=== PATIENT | female | born 1965 | race Caucasian/White ===

== ENCOUNTER → 2016-12-14 | Outpatient (CLI) | payer OTHER ==
[~2016-12-14] MED LIST: CEFA250C PO; FLUC150T PO; FRCT/ PO; RIVA1TAB4 PO
== END | disposition home or self-care (01) ==
LOC: C.LABSPEC 10:13
PROVIDERS: ATTEND Family Medicine
DX: N39.0 Urinary tract infection, site not specified (principal)

== ENCOUNTER → 2016-12-17 | Outpatient (CLI) | payer OTHER ==
--- NOTE | 2016-12-17 10:09 | DIAGNOSTIC IMAGING REPORT ---
PELVIS/BILATERAL HIP 2 VIEWS CLINICAL HISTORY: PT COMING FROM ULTRA RIGHT FLANK/ RLQ PAIN, pain COMPARISON STUDY: None FINDINGS: Mild elevation of the acetabular angles bilaterally. Mild bilateral hip dysplastic changes most likely present. No acute abnormality. No evidence for acetabular protrusion. Sacroiliac joints appear unremarkable. IMPRESSION: Mild dysplastic change of the hips bilaterally. No acute process. Electronically signed by: Keegan Barajas M.D. 12/17/2016 10:07 AM Dictated Date/Time: 12/17/2016 10:06 AM
--- NOTE | 2016-12-17 10:10 | DIAGNOSTIC IMAGING REPORT ---
LUMBAR SPINE 5 VIEWS HISTORY: Pain. Radiculopathy. PT COMING FROM ULTRA RIGHT FLANK/ RLQ PAIN, COMPARISON: None. FINDINGS: There is no fracture. No subluxation. Moderate to significant degenerative disc change L5-S1. A vacuum disc is present. All remaining discs are well-preserved. No evidence for compression deformity. IMPRESSION: Degenerative change most prominent at L5-S1 Electronically signed by: Keegan Barajas M.D. 12/17/2016 10:08 AM Dictated Date/Time: 12/17/2016 10:08 AM
--- NOTE | 2016-12-17 10:11 | DIAGNOSTIC IMAGING REPORT ---
ULTRASOUND OF THE PELVIS CLINICAL HISTORY: Right pelvic pain. COMPARISON STUDY: Pelvic CT dated 02/13/2015. TECHNIQUE: Real-time, grayscale, and color flow sonography of the pelvis is performed both transabdominally and endovaginally. Images are reviewed in the transverse and longitudinal planes. FINDINGS: Uterus: The uterus is normal in size and echotexture, measuring 9.8 x 4.8 x 5.8 cm. A 2.2 cm intramural fibroid is suggested in the fundus. Small complex appearing Nabothian cysts are incidentally noted in the cervix. Endometrium: The endometrium is normal in appearance, and the endometrial stripe is normal in thickness measuring up to 1.0 cm. A 2 mm cystic focus in the endometrium is incidentally noted. Ovaries: The ovaries are normal in size and morphology. The right ovary measures 3.3 x 1.0 x 2.4 cm and the left ovary measures 4.2 x 1.6 x 3.9 cm. Bilateral ovarian follicles are noted. Normal Doppler waveforms are shown within both ovaries. Pelvis: There is trace free fluid in the cul-de-sac. No concerning adnexal lesion is seen. IMPRESSION: 1. No acute sonographic abnormality is identified in the pelvis. 2. There is trace and likely physiologic free fluid in the cul-de-sac. 3. Suspect a fundal fibroid. Electronically signed by: Justice Luna M.D. 12/17/2016 10:10 AM Dictated Date/Time: 12/17/2016 10:08 AM
--- NOTE | 2016-12-17 10:20 | DIAGNOSTIC IMAGING REPORT ---
ABDOMINAL ULTRASOUND COMPLETE HISTORY: Pain RIGHT FLANK/ RLQ PAIN, HX R KIDNEY INFARCTION. COMPARISON: 02/09/2015 FINDINGS: Pancreas: The pancreas demonstrates a normal echotexture. Liver: Unremarkable. Gallbladder: No gallbladder wall thickening. No gallstones. CBD: 5 mm possible trace debris within the common bile duct Kidneys: No hydronephrosis. Spleen: Normal in size. Aorta: Normal in caliber. IVC: Patent. IMPRESSION: 1. Artifact versus a trace amount of debris within the common bile duct. 2. Study abdomen is otherwise negative Electronically signed by: Keegan Barajas M.D. 12/17/2016 10:19 AM Dictated Date/Time: 12/17/2016 10:09 AM
== END | disposition home or self-care (01) ==
LOC: C.ULTR 07:55
PROVIDERS: ATTEND Family Medicine
DX: R10.31 Right lower quadrant pain (principal); Z87.448 Personal history of other diseases of urinary system; Z86.19 Personal history of other infectious and parasitic diseases; R93.7 Abnormal findings on diagnostic imaging of other parts of musculoskeletal system; R93.8 Abnormal findings on diagnostic imaging of other specified body structures

== ENCOUNTER → 2017-10-15 | Outpatient (CLI) | payer OTHER ==
--- NOTE | 2017-10-15 14:37 | MAMMOGRAPHY REPORT ---
BILATERAL DIGITAL SCREENING MAMMOGRAM TOMOSYNTHESIS WITH CAD: 10/15/2017 CLINICAL HISTORY: Routine screening. TECHNIQUE: Breast tomosynthesis in addition to standard 2D mammography was performed. Current study was also evaluated with a Computer Aided Detection (CAD) system. COMPARISON: Comparison is made to exams dated: 10/09/2016 mammogram, 10/08/2015 mammogram, 4 mammogram, 08/29/2013 mammogram, 08/22/2012 mammogram, and 08/18/2011 mammogram - [facility]. BREAST COMPOSITION: The tissue of both breasts is heterogeneously dense, which may obscure small mas ses. FINDINGS: No suspicious masses, calcifications, or areas of architectural distortion are noted in ei ther breast. There has been no significant interval change compared to prior exams. Bilateral benign -appearing calcifications are not significantly changed. Regional asymmetry in the left superior yue ast is stable dating back to at least the 2007 exam. Other bilateral asymmetries are stable. IMPRESSION: ACR BI-RADS CATEGORY 2: BENIGN There is no mammographic evidence of malignancy. A 1 year screening mammogram is recommended. The pa tient will receive written notification of the results. Approximately 10% of breast cancers are not detected with mammography. A negative mammographic report should not delay biopsy if a clinically suggestive mass is present. Kayla Fu M.D. ah/:10/15/2017 10:15:16 Finished Cigar Maker: Megan MOSES)([place]), [facility] letter sent: Normal 1/2 BI-RADS Code: ACR BI-RADS Category 2: Benign
== END | disposition home or self-care (01) ==
LOC: C.MAMM 08:14
PROVIDERS: ATTEND Family Medicine
DX: Z12.31 Encounter for screening mammogram for malignant neoplasm of breast (principal)

== ENCOUNTER → 2017-12-15 | Outpatient (CLI) | payer OTHER ==
--- NOTE | 2017-12-15 11:37 | DIAGNOSTIC IMAGING REPORT ---
VENOUS DOPPLER LWR EXT BILA HISTORY: Pain. Edema. R/O DVT BL COMPARISON STUDY: None. FINDINGS: There is normal compressibility, flow, and augmentation within the bilateral lower extremity deep venous systems. IMPRESSION: No DVT within the right or left lower extremity. The above report was generated using voice recognition software. It may contain grammatical, syntax or spelling errors. Electronically signed by: Keegan Barajas M.D. 12/15/2017 11:36 AM Dictated Date/Time: 12/15/2017 11:35 AM
[2017-12-15 12:13] LABS: HEMATOCRIT 39.4 % (37-47); HEMOGLOBIN 13.4 g/dL (12.0-16.0); MEAN CELL VOLUME 97.5 fL (80-100); MEAN CORPUSCULAR HEMOGLOBIN 33.2 pg (25-34); PLATELET COUNT 305 K/uL (130-400); RED CELL DISTRIBUTION WIDTH CV 12.6 % (11.5-14.5); RED CELL DISTRIBUTION WIDTH SD 44.9 fL (36.4-46.3); WHITE BLOOD COUNT 5.87 K/uL (4.8-10.8)
[2017-12-15 12:23] LABS: ALBUMIN 3.8 gm/dl (3.4-5.0); ALT/SGPT 14 U/L (12-78); BLOOD UREA NITROGEN 10 mg/dl (7-18); CALCIUM 8.9 mg/dl (8.5-10.1); CARBON DIOXIDE 27 mmol/L (21-32); CHOLESTEROL 187 mg/dl (0-200); CREATININE 0.89 mg/dl (0.60-1.20); GLUCOSE 94 mg/dl (70-99); POTASSIUM 3.5 mmol/L (3.5-5.1); SODIUM 137 mmol/L (136-145)
[2017-12-15 12:26] LABS: HEMOGLOBIN A1C 5.7 % (4.5-5.6)
[2017-12-15 12:32] LABS: ALKALINE PHOSPHATASE 46 U/L (45-117); AST/SGOT 18 U/L (15-37); LDL CHOLESTEROL CALCULATED 98 mg/dl; TOTAL PROTEIN 7.2 gm/dl (6.4-8.2); TRANSFERRIN 294 mg/dl (200-360)
[2017-12-16 13:23] LABS: CA 125 **TC 29256X 30 U/ML (<35)
== END | disposition home or self-care (01) ==
LOC: C.ULTR 09:34
PROVIDERS: ATTEND Family Medicine
DX: D50.9 Iron deficiency anemia, unspecified (principal); Z86.718 Personal history of other venous thrombosis and embolism; M79.605 Pain in left leg; M79.604 Pain in right leg; R60.0 Localized edema

== ENCOUNTER 2020-08-09 10:16 | Observation (INO) ==
--- NOTE | 2020-07-09 13:55 | PAT Medication Instructions ---
Medication Instructions Date of Service July 09, 2020 Home Medications Medication Instructions Recorded Wheeled Walker #1 ea 06/28/20 Wheeled Walker #1 ea 06/28/20 aspirin [Aspir-81] 81 mg PO QPM rizatriptan [Maxalt] 10 mg PO UD PRN Take morning of surgery With a small sip of water, OTHERWISE NOTHING TO EAT OR DRINK AFTER MIDNIGHT: rizatriptan [Maxalt] 10 mg PO UD PRN (if needed) Take evening before surgery aspirin [Aspir-81] 81 mg PO QPM rizatriptan [Maxalt] 10 mg PO UD PRN Other Notes If you have any questions please call us at [phone] or [phone] or [phone] or [phone]
--- NOTE | 2020-07-10 09:38 | Anesthesiology Consultation ---
Date of Service July 10, 2020 Assessment & Plan (1) Encounter for pre-operative examination: COVID Status: As of 07/10 assessment, patient denies travel to endemic area, known exposure/sick contacts, or symptoms of COVID19. Patient instructed that they and their household members must follow strict social distancing guidelines, wear a mask in public and avoid travel for 14 days prior to surgery. Preoperative COVID19 testing to be completed prior to surgery per surgeon's a rrangements. Patient made aware to self-isolate as much as possible between COVID testing and surgery. HCG AM DOS H/O PONV. Chart Review Chart Review: Acceptable Risk for Surgery and Patient seen in Pre Admission Testing Teaching & Discussion Instructed NPO after midnight before surgery, except medications with 15 cc of water. Medication instructions provided according to the PAT guidelines. History Surgery Operation Date: 08/09/20 13:15 Proposed Procedures p Left Total Knee Arthroplasty - Jt Hernandez MD Height/Weight Height: 5 ft 2 in Weight: 65.8 kg Allergies Allergy/AdvReac Type Severity Reaction Status Date / Time latex Allergy Unknown RASH-WITH Verified 07/04/20 09:10 GLOVES Iodinated Contrast Media AdvReac Unknown FAINT Verified 07/04/20 09:10 NAUSEA Medications Home Medications Medication Instructions Recorded Confirmed Last Taken Wheeled Walker #1 ea 06/28/20 Unknown Wheeled Walker #1 ea 06/28/20 Unknown aspirin [Aspir-81] 81 mg PO QPM 07/04/20 07/04/20 Unknown rizatriptan [Maxalt] 10 mg PO UD PRN 07/04/20 07/04/20 Unknown Past Medical History Medical History (Updated 07/10/20 @ 09:47 by Devonte Balderas) DVT (deep venous thrombosis) RLE 2014-ATTRIBUTED TO [facility]-STOPPED TAKING-WAS ON XARELTO SHORT TIME-NO ISSUES SINCE Migraine HX Osteoarthritis Ovarian cyst Exercise / Class Metabolic Activity II 4-5 Yardwork/Stairs/Walk up hill Past Family History Family History Other No significant family history Past Surgical History Surgical History (Updated 07/10/20 @ 09:47 by Devonte Balderas) History of arthroscopy KNEE History of dermoid cyst excision upper lip History of dilatation and curettage History of tooth extraction LOCAL ANESTHESIA Nausea and vomiting after administration of anesthetic agent Past Anesthesia History No Hx of Anesthesia Complications and No Family Hx of Anesthesia Complications History of PONV No Hx of Motion Sickness and History of PONV Social History Smoking Status: Never smoker Do You Dip or Chew Tobacco: No Hx Alcohol Use: Yes Alcohol type: wine alcohol intake frequency: a few times a month Hx Substance Use: No Review of Systems Pt denies any recent chest pain, shortness of breath, palpitations, cough, fever, URI, or uncontrolled acid reflux. +itchy watery eyes, sneezing from seasonal allergies Physical Exam Vital Signs BP: 145/90 P: 84bpm SPO2: 100% RA T: 98.3 F R: 12 ENMT Mouth: + dental restorations (2 caps on molars) and + chipped teeth (very small chip in upper L incisore); no loose teeth Thyromental Distance: > or= 3.5 Finger Breadths Mallampati Class: I Neck normal visual inspection; neck extension not limited Respiratory normal respiratory effort Auscultation: lungs clear to auscultation bilaterally Cardiovascular Rate/Rhythm: regular rate and regular rhythm Heart Sounds: no murmur Extremities: no edema Testing Laboratory Results 07/10/20 09:50 07/10/20 09:50 PT 10.2 Seconds (9.0-12.0) 07/10/20 09:50 INR 1.0 (0.9-1.1) 07/10/20 09:50 APTT 25.2 Seconds (21.0-31.0) 07/10/20 09:50 Blood Type A Positive 07/10/20 09:50 Antibody Screen NEGATIVE 07/10/20 09:50 Electrocardiogram Date: 07/10/20 Findings: + NSR @ (79bpm) Chest X-Ray Date: 07/10/20 Findings: + NAD
--- NOTE | 2020-07-10 10:25 | XRay Report ---
XR chest Pre-admission PA/Lat CLINICAL HISTORY: Preoperative chest COMPARISON STUDY: No previous studies for comparison. FINDINGS: The cardiac and mediastinal contours are normal. There is no evidence of focal pulmonary co nsolidation. There is no evidence of failure. No pleural effusions are visualized.[ IMPRESSION: No active disease in the chest. ACT 112: Negative or not required by law. Electronically signed by: Bj Cummins M.D. 07/10/2020 10:23 AM
[2020-07-10 11:27] LABS: Basophils # (auto) 0.03 K/uL (0-0.2); Basophils % (auto) 0.6 %; Eosinophils # (auto) 0.03 K/uL (0-0.5); Eosinophils % (auto) 0.6 %; Hematocrit (blood only) 41.7 % (37-47); Hemoglobin 13.8 g/dL (12.0-16.0); Lymphocytes # (auto) 1.43 K/uL (1.2-3.4); Lymphocytes % (auto) 29.7 %; Mean Corpuscular Hemoglobin 32.1 pg (25-34); Mean Corpuscular Hgb Conc 33.1 g/dL (32-36); Mean Platelet Volume 10.5 fL (7.4-10.4); Monocytes # (auto) 0.35 K/uL (0.11-0.59); Monocytes % (auto) 7.3 %; Neutrophils # (auto) 2.98 K/uL (1.4-6.5); Neutrophils % (auto) 61.8 %; Platelet Count 363 K/uL (130-400); RDW Coefficient of Variation 12.5 % (11.5-14.5); RDW Standard Deviation 44.2 fL (36.4-46.3); White Blood Count 4.82 K/uL (4.8-10.8)
[2020-07-10 11:44] LABS: Partial Thromboplastin Ratio 0.9; Partial Thromboplastin Time 25.2 Seconds (21.0-31.0); Prothrombin Time 10.2 Seconds (9.0-12.0)
[2020-07-10 13:03] LABS: BUN Creatinine Ratio 14.5 (10-20); Calcium 9.9 mg/dl (8.5-10.1); Creatinine Clr Calc Pharmacy 65.8 ml/min; Est GFR (African American) 86.9; Potassium 3.9 mmol/L (3.5-5.1)
--- NOTE | 2020-07-11 05:52 | Electrocardiogram Report ---
Test Reason : Blood Pressure : / mmHG Vent. Rate : 079 BPM Atrial Rate : 079 BPM P-R Int : 124 ms QRS Dur : 072 ms QT Int : 378 ms P-R-T Axes : 067 068 053 degrees QTc Int : 433 ms Normal sinus rhythm Normal ECG When compared with ECG of 13-JAN-2019 20:25, No significant change was found Confirmed by Otoniel Johns ([id number]) on 07/11/2020 5:51:49 AM Referred By: Jt Hernandez Confirmed By:Otoniel Johns
--- NOTE | 2020-08-03 13:36 | History and Physical Report ---
DATE OF ADMISSION: 08/09/2020 CHIEF COMPLAINT: Bilateral knee pain and discomfort, left side greater than right. HISTORY OF PRESENT ILLNESS: The patient is a 54-year-old female who presents for followup and treatment of her knees. I have been treating for the past 1+ years for her knee DJD. It has gradually gotten worse over time. She does have a history of left knee arthroscopy done in the in [place]. Since then, she has been through extensive conservative treatment including bracing, therapy, anti-inflammatories, and topical medicines and injections. This has become less successful over time. Left side bothering more than the right. She has global pain. It is increased with weightbearing. The more she is up and on it, the more it hurts. She would like to have her knee fixed. PAST MEDICAL HISTORY: Significant for, 1. History of DVT, thought to be related to contraceptive use. Negative hematological workup. 2. Degenerative arthritis. PAST SURGICAL HISTORY: Includes, 1. Left knee arthroscopy in the . 2. Mcbee teeth extraction. ALLERGIES: HAY FEVER AND TYLENOL. CURRENT MEDICATIONS: Include Singulair and aspirin. SOCIAL HISTORY: A 54-year-old female. She is . Rare alcohol intake. Lives in [place]. Does not smoke. FAMILY HISTORY: Noncontributory. REVIEW OF SYSTEMS: Negative for diabetes, neurologic problem, vascular problems or bleeding disorders. No chest pain or shortness of breath. No history of DVT or PE. No known bleeding problems. PHYSICAL EXAMINATION GENERAL: Shows a pleasant, healthy, thin female. Looks to be in good health. HEENT: Benign. NECK: Supple, no lymphadenopathy. LUNGS: Clear to auscultation. HEART: Has a regular rate and rhythm. ABDOMEN: Soft, nontender, nondistended. EXTREMITIES: Grossly neurovascularly intact except as follows: Examination of the left knee reveals the patient walks with a valgus alignment to her knee, which is increased with weightbearing. She has a small to moderate size knee effusion. Range of motion 5-120. No instability. No pain with hip motion. Examination of the right knee reveals slight valgus alignment. Small knee effusion. Range of motion 0-125. No instability. X-RAYS: X-rays of the left knee are reviewed. It shows advanced left knee lateral compartment DJD. She has complete loss of her lateral joint space. It is worse on the 45-degree flexion films. She has got osteophytes laterally. ASSESSMENT: A 54-year-old female with advanced bilateral knee degenerative joint disease, left side more symptomatic than right. She has failed conservative care including a knee arthroscopy many years ago. She would like to have her left knee replaced. PLAN: We discussed treatment. We are going to proceed with left knee replacement. The risks and benefits of this procedure were explained to the patient and include but not limited to DVT, PE, , infection, neurological injury, vascular injury, bleeding problem, pain, limited range of motion, stiffness, failure to relieve her symptoms, incomplete relief of symptoms, need for further surgery in the future, fracture, leg length inequality, nerve palsy, etc. The patient understands and desires to proceed. Informed consent was obtained. Due to her history of this DVT in the past, we will likely use Xarelto for a month postoperatively for DVT prophylaxis along with TEDs and SCDs. She is going to plan and have [facility] assist in her care. I will see her back 2 weeks postop.
[~2020-08-09 10:16] MED LIST changes: +ACETAMINOPHEN 500 MG TAB PO SCH; +BUPIVACAINE 0.5 % 5 MG/1 ML PF 10ML VIAL ONE; +BUPIVACAINE LIPOSOME/PF 266 MG, BUPIVACAINE/EPINEPHRINE 50 ML, SODIUM CHLORIDE 0.9% 30 ... INFIL SCH; +BUPIVACAINE/EPINEPHRINE 0.25% 1:200,000 30 ML VIAL ONE; -CEFA250C PO; +DEXAMETHASONE SOD INJ 4 MG/ML VIAL ONE; +FAMOTIDINE 20 MG TAB PO SCH; -FLUC150T PO; -FRCT/ PO; +GABAPENTIN 900 MG DOSE PO SCH; +LR 500ML BOLUS, THEN 15ML/HR IV SCH; +LR 60ML/HR IV SCH; +METOCLOPRAMIDE HCL 10 MG TABLET PO SCH; -RIVA1TAB4 PO; +TRANEXAMIC ACID 1,000 MG **IV Intra-op IV SCH; +ceFAZolin 2000MG 2,000 MG/15 ML SYR IV SCH
--- NOTE | 2020-08-09 11:26 | History & Physical Bridge Note ---
Date of Service August 09, 2020 History & Physical Bridge Note I have examined the patient, reviewed the History & Physical and in the interval since the performance of the History & Physical I have noted the following changes of clinical significance: no changes noted
[2020-08-09] MEDS ORDERED: DEXAMETHASONE SOD INJ 4 MG/ML VIAL ONE (12:21)
[2020-08-09] MEDS ORDERED: PROPOFOL IV EMULSION 10 MG/ML 20 ML VIAL IV ONE ×2 (12:21→14:58)
[2020-08-09] MEDS ORDERED: LIDOCAINE HCL 2% 2 ML VIAL/AMP(20MG/ML) INFIL ONE (12:21)
[2020-08-09] MEDS ORDERED: ONDANSETRON INJ 2 MG/ML 2 ML VIAL ONE (12:21)
[2020-08-09] MEDS ORDERED: MIDAZOLAM HCL 1 MG/ML 2ML VIAL ONE (12:22)
[2020-08-09] MEDS ORDERED: fentaNYL citrate 100 MCG/2 ML VIAL ONE (12:22)
[2020-08-09] MEDS ORDERED: ePHEDrine sulfate 50 MG/ML AMP IV PRN (12:53)
[2020-08-09] MEDS ORDERED: ATROPINE SULFATE 0.1 MG/ML 10ML SYR IV PRN (12:53)
[2020-08-09] MEDS ORDERED: fentaNYL citrate 100 MCG/2 ML VIAL IV PRN (12:53)
[2020-08-09] MEDS ORDERED: ONDANSETRON INJ 2 MG/ML 2 ML VIAL IV PRN ×2 (12:53→16:15)
[2020-08-09] MEDS ORDERED: ePHEDrine sulfate 50 MG/ML AMP ONE (12:57)
[2020-08-09] MEDS ORDERED: BUPIVACAINE LIPOSOME 1.3% 266 MG/20 ML VIAL ONE (13:35)
[2020-08-09] MEDS ORDERED: SODIUM CHLORIDE 0.9% PF 50 ML VIAL ONE (13:35)
[2020-08-09] MEDS ORDERED: BACITRACIN INJ 50,000 UNIT VIAL ONE (13:35)
[2020-08-09] MEDS ORDERED: BUPIVACAINE/EPINEPHRINE 0.25% 1:200,000 30 ML VIAL ONE (13:37)
[2020-08-09] MEDS ORDERED: PHENYLEPHRINE 100MCG/ML 5ML SYR ONE (14:23)
--- NOTE | 2020-08-09 15:37 | Post Operative Brief Note ---
PG Immediate Post Op with CF Date of Surgery August 09, 2020 Pre & Post Diagnosis Operation Date: 08/09/20 12:30 Pre-Op Diagnosis: Left Knee Degenerative Joint Disease Post-Op Diagnosis: Left Knee Degenerative Joint Disease I identified the patient and participated in the time-out.: Yes Procedure Operation Date: 08/09/20 12:30 Actual Procedures p Left Total Knee Replacement(Left) - Jt Hernandez MD Surgeon Jt Hernandez MD Carpenter Repairer Shaniqua, PAC Estimated Blood Loss 50 Findings Consistent with Post-Op Diagnosis Fluids 1600 cc Specimens Specimen Description: Permanent Solution: A.) Left Knee Bone and Tissue Drains Fletcher Catheter (16F latex free 10ml balloon; inserted by Maksim Mcgovern PA-C without difficulty) Anesthesia Type Spinal MAC Complications none Disposition Accompanied Patient To Recovery: Yes Disposition: Recovery Room
--- NOTE | 2020-08-09 15:56 | XRay Report ---
TWO VIEWS LEFT KNEE CLINICAL HISTORY: Postoperative examination. FINDINGS: AP and crosstable lateral portable views of the left knee are obtained. A left knee arthrop lasty is in near anatomic alignment. There has been undersurface remodeling of the patella. No acute fracture is seen. There are expected postoperative changes around the knee including skin clips, soft tissue edema, and subcutaneous gas. IMPRESSION: Expected postoperative changes status post left knee arthroplasty. No acute fracture is s een. ACT 112: Negative or not required by law. Electronically signed by: Justice Luna M.D. 08/09/2020 3:55 PM
--- NOTE | 2020-08-09 16:12 | Operative Report ---
Post Operative Report Pre & Post Diagnosis Operation Date: 08/09/20 12:30 Pre-Op Diagnosis: Left Knee Degenerative Joint Disease Post-Op Diagnosis: Left Knee Degenerative Joint Disease I identified the patient and participated in the time-out.: Yes Procedure Operation Date: 08/09/20 12:30 Actual Procedures p Left Total Knee Replacement(Left) - Jt Hernandez MD Surgeon Jt Hernandez MD Collar Feller Shaniqua, PAC Estimated Blood Loss 50 Findings Consistent with Post-Op Diagnosis Operative findings revealed advanced left knee DJD with extensive grade 4 changes of the lateral compartment as well as the patellofemoral compartment. She had a fixed valgus deformity to her knee. Moderate sized knee joint effusion. Fluids 1600 cc. Specimens Left knee sent for pathology. Drains None. Anesthesia Type Spinal MAC Complications none Disposition Accompanied Patient To Recovery: Yes Disposition: Recovery Room Indications Patient is a 54-year-old female has had a several year history of increasing bilateral knee pain discomfort left side greater than the right. We have been treating conservatively over the years which became less successful over time. She does have a history of knee arthroscopy in the past. X-rays show advanced lateral compartment DJD. She elected proceed with surgical treatment. Description of Procedure Operative implants consist of: 1. Biomet Vanguard size 62.5 left posterior stabilized femoral component. 2. Biomet size 67 tibial tray. 3. 12 mm posterior stabilized polyethylene insert. 4. 28 x 8 all polypatella. Patient was taken to the operating room identified and placed on the operating table supine position but all contact areas were properly padded. IV antibiotics arrived by anesthesia team. A spinal anesthetic and abductor canal block had been provided in the holding area. Fletcher catheter was placed in sterile fashion. Left thigh tip was then placed in the left lower extremities and prepped draped in usual sterile fashion. The left leg was elevated exsanguinated with use of an Esmarch and turns placed at 3 mmHg. An anterior approach left knee was then performed to longitudinal incision centered over the patella. Sharp dissection was got through subcutaneous tissue down to level the extensor mechanism. A medial parapatellar arthrotomy incision was made. Some subperiosteal dissection was carried out medially. The fat pad was resected from each patella tendon. Lateral patellofemoral ligament was released. The patella was subluxated laterally and the knee was flexed. The osteophytes were taken off the distal femur. The ACL and PCL were then released from distal femur the tibia subluxate anteriorly. External tibial alignment jig was then placed in the interface the tibia and adjusted 12 mm medially. Proximal tibial cut was made to move about 3 to 4 mm o f bone from the medial side. The tibia sized to a size 67. Attention drawn the femur. The distal femur was entered with a sharp drill. The intramedullary canal was suction. A left 5 degree valgus cutting guide was placed. This femoral cutting block was pinned in place. Distal femoral cut was made to take an additional 3 mm bone off distal femur. The knee was then brought out in extension. I did release some of the IT band in the posterior lateral capsule in order to equalize the extension gap. Great care was taken to protect the peroneal nerve at all times. The knee was then flexed. The femur was sized to a size 62.5. The AP cutting block was pinned parallel to the epicondylar axis which was 6 degrees of external rotation. The anterior cut, anterior chamfer, posterior cut, posterior chamfer cuts were made. Box cutting guide was placed in a just slight lateral and the box cut was made. The knee was flexed. The remnants of the medial lateral menisci were excised. The osteophytes were taken off the posterior aspect of femur. I did release the popliteus in order to equalize the flexion gap. The trial femoral component was then placed. The tibial tray was pinned in maximum external rotation and the drill and stem punch were used to create defect in proximal tip for the tibial tray. The knee was then trialed and the 12 mm insert fit most appropriately. Attention drawn the patella. The patella was cleaned of all soft tissues. Patella thickness measured 20 mm in thickness was cut down 13. Was sized to a size 28 patella. Locals were drilled for the 28 patella. Lateral osteophyte is moved. Patella button was placed. The knee was taken through range of motion and the patella tracked nicely with no thumbs test. Attention drawn to place the permanent components. All trial components were removed. A bone plug was placed in the distal femur limit blood loss put a double batch Pal[place]os G cement was mixed. A Biomcisimple Vanguard size 62.5 left posterior stabilized femoral component, a size 67 tibial tray, a 12 mm posterior box polyethylene insert, and a 28 x 8 all polypatella were then cemented in place. He was brought out into full extension total c ement hardened. Final cement check was then performed. The pericapsular tissues were injected with total 100 cc of combination of 20 cc of Exparel, 30 cc normal saline, 50 cc of quarter percent Marcaine with epinephrine. Patient did receive 1 g tranexamic acid per the tourniquet was then let down for final turn time 58 minutes. Hemostasis assured use electrocautery. The extensor mechanism then closed with combination 1 PDS suture #1 Vicryl suture in [id number] fashion. Extensor mechanism checked found to be intact the subcutaneous tissue then closed 2 Dexon suture in buried nerve fascia skin was closed skin mariluz. Leg was then cleaned dried a sterile dressing. Xeroform, 4 x 4's, sterile cast padding, Jacob bandage were applied. Patient then transferred to the recovery in stable condition. The patient tolerated procedure well and there were no complications. Maksim Mcgovern, my physician assistant professor of radiology, was present for the entire procedure. His assistance was essential and required for appropriate patient positioning, prepping and draping, surgical exposure, performing the technical details of the operation, placement the implants, closure of the wound, and placement of the sterile bandage. I attest to the content of the Intraoperative Record and any orders documented therein. Any exceptions are noted below.
[2020-08-09] MEDS ORDERED: ALUMINUM/MAGNESIUM SUSP 30 ML UDC PO PRN (16:15)
[2020-08-09] MEDS ORDERED: METOCLOPRAMIDE HCL INJ 5 MG/ML 2 ML VIAL IV PRN (16:15)
[2020-08-09] MEDS ORDERED: RIZATRIPTAN BENZOATE 10 MG TAB PO PRN (16:15)
[2020-08-09] MEDS ORDERED: diphenhydrAMINE Capsule 25 MG CAP PO PRN (16:15)
[2020-08-09] MEDS ORDERED: NALOXONE HCL 0.4 MG/1 ML VIAL/CARP IV PRN (16:15)
[2020-08-09] MEDS ORDERED: MAGNESIUM HYDROXIDE SUSP 30 ML UDC PO PRN (16:15)
[2020-08-09] MEDS ORDERED: HYDROmorphone INJ 0.5 MG/0.5 ML SYR IV PRN (16:15)
[2020-08-09] MEDS ORDERED: bisacodyL 10 MG SUPP PR PRN (16:15)
--- NOTE | 2020-08-09 16:25 | Anesthesiology Progress Note ---
Date of Service August 09, 2020 Anesthesia Post Procedure Vital Signs Vital Signs: Temp Pulse Pulse Pulse Resp BP BP 08/09/20 16:10 36.3 C L 96 H 16 99/62 L 08/09/20 15:55 36.5 C 92 H 16 102/59 L 08/09/20 15:45 101 H 16 104/53 L 08/09/20 15:37 36.6 C 101 H 16 110/56 L 08/09/20 11:24 37.2 C 99 H 20 126/88 Pulse Ox 08/09/20 16:10 97 08/09/20 15:55 96 08/09/20 15:45 98 08/09/20 15:37 98 08/09/20 11:24 99 Pain Intensity Right Head: Pain Intensity: 2 Transfer of Care Handoff Completed per policy Notes Mental Status: alert / awake / arousable Patient Amnestic to Procedure: Yes Nausea / Vomiting: adequately controlled Pain: adequately controlled Airway Patency, RR, SpO2: stable & adequate BP & HR: stable & adequate Hydration State: stable & adequate Neuraxial Anesthesia: was administered and sensory block is resolving Anesthetic Complications: no major complications apparent and Pt Satisfied with anesthetic care
[2020-08-09] MEDS ORDERED: SODIUM CHLORIDE 0.9% 1000ML 1,000 ML IV SCH (16:45)
[2020-08-09] MEDS: Scopolamine CHECK PATCH PLACEMENT SCH (17:09)
[2020-08-09] MEDS: ASCORBIC ACID 500 MG TAB PO SCH (18:25)
[2020-08-09] MEDS: FERROUS GLUCONATE 324 MG TAB PO SCH (18:26)
[2020-08-09] MEDS: KETOROLAC TROMETHAMINE 15 MG/ML VIAL IV SCH ×2 (18:26→22:36)
[2020-08-09] MEDS: ceFAZolin 1000MG 1,000 MG/7.5 ML SYR IV SCH (21:20)
[2020-08-09] MEDS: ACETAMINOPHEN 500 MG TAB PO SCH (21:21)
[2020-08-09] MEDS: SENNA 8.6 MG TAB PO SCH (21:22)
[2020-08-09] MEDS: ASPIRIN 81 MG ECTAB PO SCH (21:22)
[2020-08-09] MEDS: DOCUSATE SODIUM 100 MG CAP PO SCH (21:22)
[2020-08-09] MEDS: TAPENTADOL HCL ER 50 MG TABCR PO SCH (21:28)
[2020-08-10] MEDS: Scopolamine CHECK PATCH PLACEMENT SCH ×4 (00:09→23:48)
[2020-08-10] MEDS: ACETAMINOPHEN 500 MG TAB PO SCH ×3 (05:41→22:02)
[2020-08-10] MEDS: ceFAZolin 1000MG 1,000 MG/7.5 ML SYR IV SCH (05:41)
[2020-08-10] MEDS: KETOROLAC TROMETHAMINE 15 MG/ML VIAL IV SCH ×2 (05:42→11:12)
[2020-08-10 06:20] LABS: Hematocrit (blood only) 36.7 % (37-47); Hemoglobin 12.4 g/dL (12.0-16.0); Mean Corpuscular Hemoglobin 32.5 pg (25-34); Mean Corpuscular Hgb Conc 33.8 g/dL (32-36); Mean Corpuscular Volume 96.3 fL (80-100); Platelet Count 318 K/uL (130-400); RDW Coefficient of Variation 12.2 % (11.5-14.5); RDW Standard Deviation 42.8 fL (36.4-46.3); Red Blood Count 3.81 M/uL (4.2-5.4); White Blood Count 16.17 K/uL (4.8-10.8)
[2020-08-10 06:49] LABS: BUN Creatinine Ratio 10.8 (10-20); Calcium 9.4 mg/dl (8.5-10.1); Creatinine Clr Calc Pharmacy 58.1 ml/min; Est GFR (African American) 76.3; Est GFR (Non-African American) 65.9; Potassium 3.7 mmol/L (3.5-5.1)
[2020-08-10] MEDS: MULTIVITAMIN TAB PO SCH (08:20)
[2020-08-10] MEDS: DOCUSATE SODIUM 100 MG CAP PO SCH ×2 (08:20→20:05)
[2020-08-10] MEDS: ASCORBIC ACID 500 MG TAB PO SCH ×2 (08:20→18:00)
[2020-08-10] MEDS: FERROUS GLUCONATE 324 MG TAB PO SCH ×2 (08:20→18:01)
[2020-08-10] MEDS: TAPENTADOL HCL ER 50 MG TABCR PO SCH ×2 (08:21→20:05)
--- NOTE | 2020-08-10 09:34 | Progress Notes ---
DATE: 08/10/2020 SUBJECTIVE: A 54-year-old female postop day 1 from left knee replacement. She is doing quite well. Had a good night. Pain is controlled. No chest pain or shortness of breath. Not feeling dizzy or lightheaded. OBJECTIVE: VITAL SIGNS: Temperature 36.4. Vital signs stable. GENERAL: Shows a pleasant, middle-aged female. She is lying in bed, looks quite comfortable this morning. LUNGS: Clear to auscultation. HEART: Regular rate and rhythm. ABDOMEN: Soft, nontender, nondistended. EXTREMITIES: Grossly neurovascularly intact except as follows. Examination of the left leg reveals the dressing to be clean, dry and intact. Leg is well aligned. She can dorsiflex and plantarflex her foot appropriately. She is neurologically intact. LABORATORY DATA: Hemoglobin 12.4. Hematocrit 36.7. White cell count 16.17. Electrolytes are stable. ASSESSMENT: A 54-year-old female postop day 1 from left knee replacement, doing well. Pain is controlled. She is neurologically intact. White cell count is elevated, likely related to stress. PLAN: 1. DVT prophylaxis including thigh-high TEDs, SCDs, and Xarelto for 1 month. 2. PT/OT. Weight bear as tolerated. Left total knee protocol. 3. Pain control, doing well with current pain regimen. 4. Disposition: Plan to discharge to home with some home health once adequately recovered and medically stable and pain controlled.
[2020-08-10] MEDS: oxyCODONE HCL IR 5 MG TAB (IMMEDIATE RELEASE) PO PRN (15:41)
[2020-08-10] MEDS: RIVAROXABAN 10 MG TABLET PO SCH (15:43)
[2020-08-10] MEDS: SENNA 8.6 MG TAB PO SCH (20:05)
[2020-08-10] MEDS: ASPIRIN 81 MG ECTAB PO SCH (20:05)
[2020-08-11] MEDS: oxyCODONE HCL IR 5 MG TAB (IMMEDIATE RELEASE) PO PRN ×2 (02:05→09:39)
[2020-08-11] MEDS: ACETAMINOPHEN 500 MG TAB PO SCH (05:34)
[2020-08-11] MEDS: MULTIVITAMIN TAB PO SCH (08:40)
[2020-08-11] MEDS: ASCORBIC ACID 500 MG TAB PO SCH (08:40)
[2020-08-11] MEDS: TAPENTADOL HCL ER 50 MG TABCR PO SCH (08:40)
[2020-08-11] MEDS: DOCUSATE SODIUM 100 MG CAP PO SCH (08:40)
[2020-08-11] MEDS: FERROUS GLUCONATE 324 MG TAB PO SCH (08:40)
[2020-08-11] MEDS: RIVAROXABAN 10 MG TABLET PO SCH (08:40)
[2020-08-11] MEDS: Scopolamine CHECK PATCH PLACEMENT SCH (08:41)
--- NOTE | 2020-08-11 08:56 | Progress Notes ---
DATE: 08/11/2020 SUBJECTIVE: A 54-year-old female postop day 2 from a left knee replacement. She is doing pretty well. Pain has been reasonably well controlled. No chest pain or shortness of breath. Not feeling dizzy or lightheaded. OBJECTIVE: VITAL SIGNS: Temperature 36.9. Vital signs stable. GENERAL: Shows a pleasant, middle-aged female. She was walking around her room this morning with a walker and doing pretty well. EXTREMITIES: Examination of the left leg reveals it to be well aligned. Dressing is clean, dry and intact. Calf is soft and supple. She is neurologically intact. ASSESSMENT: A 54-year-old female postop day 2 from left knee replacement, doing well. Pain has been reasonably well controlled. She is neurologically intact. PLAN: 1. DVT prophylaxis including thigh-high TEDs, SCDs, and Xarelto for 1 month. 2. PT/OT. Weight bear as tolerated. Left total knee protocol. 3. Pain control, doing okay with current pain regimen. 4. Disposition: Plan to discharge to home with some home health later today.
--- NOTE | 2020-08-13 06:34 | Discharge Summary ---
Date of Service August 13, 2020 Admission HPI Per Admitting Provider Documented in the H & P Admission Exam (Per Admitting) Constitutional Documented in the h & P Discharge Data Consultations 08/09/20 16:15 Consult Case Management - Discharge Planning Routine Procedures Performed Operation Date: 08/09/20 12:30 Actual Procedures p Left Total Knee Replacement(Left) - Jt Hernandez MD Hospital Course (1) Status post total left knee replacement: This patient is a 54 year old female admitted on 08/09/20 and underwent total knee arthroplasty. She tolerated the procedure well and there were no complications. Transferred to the PACU post op and later to the orthopedic floor for further care. She was given ancef for antibiotic prophylaxis. She was also given LUTHER stockings, SCDs, and xarelto for DVT prophylaxis. Hemoglobin, hematocrit, and vital signs were monitored during her hospital stay and remained stable. Did not require any blood transfusions. There were no complications during her hospital stay. By post op day #2 the patient was tolerating a regular diet, pain was reasonably controlled with oral pain medicine, and she was participating in physical therapy. On post op day #2 the patient was discharged home and set up with home health care. She was given printed discharge instructions including prescriptions for extra strength tylenol, xarelto, and oxycodone. Continue physical therapy, weight bearing as tolerated. Continue LUTHER stockings. Follow up approximately 2 weeks post op or sooner if there are problems or concerns. Coding Level of Care Code None Diagnoses Status post total left knee replacement Z96.652
== END 2020-08-11 12:04 | disposition home health service (06) ==
LOC: ASU 10:16 → 3E 10:16